=== PATIENT | female | born 1975 | race Caucasian/White ===

== ENCOUNTER 2017-05-22 11:41 | Emergency (ER) | payer BC ==
[~2017-05-22] VITALS: Ht 165.1 cm; Wt 71.3 kg
[2017-05-22 12:19] LABS: ADD MIUA? YES; BILIRUBIN NEGATIVE; BLOOD NEGATIVE; COLOR YELLOW ((YELLOW)); GLUCOSE (STRIP) NEGATIVE; KETONES NEGATIVE; LEUKOCYTES MODERATE; NITRITE NEGATIVE; PROTEIN (STRIP) NEGATIVE; SPECIFIC GRAVITY 1.011 (1.000-1.030); UROBILINOGEN 0.2 MG/DL (0.2-1.0)
[2017-05-22 12:27] LABS: BACTERIA 3+ /HPF; EPITHELIAL CELLS 4+ /HPF; MUCUS NONE SEEN /LPF
[2017-05-22 12:37] LABS: HEMATOCRIT 35.8 % (36.0-46.0); MCH 30.8 PG (29.0-34.0); MCHC 33.8 G/DL (30.0-36.0); MCV 91.1 FL (83-99); MEAN PLAT.VOLUME 9.7 uM^3 (9.5-12.4); PLATELET COUNT 266 K/uL (156-360); RBC DIS.WIDTH-CV 12.3 % (11.8-14.6); RBC DIS.WIDTH-SD 41.2 % (39-53); RED BLOOD COUNT 3.93 M/uL (3.80-5.20); WHITE BLOOD COUNT 11.9 K/uL (4.1-10.2)
[2017-05-22 12:46] LABS: CHLORIDE 109 mEq/L (99-109); POTASSIUM 3.4 mEq/L (3.7-5.4); SODIUM 140 mEq/L (136-147)
[2017-05-22 12:48] LABS: GLUCOSE 93 mg/dL (70-99)
[2017-05-22 12:49] LABS: ANION GAP 10 MEQ/L (2-14)
[2017-05-22 12:50] LABS: TOTAL BILIRUBIN 0.5 mg/dL (0.0-1.0)
[2017-05-22 12:52] LABS: ALKALINE PHOSPHATASE 80 IU/L (3-129); GFR ESTIMATE (CALCULATED) > 59 mL/min/
[2017-05-22 12:53] LABS: UREA NITROGEN (BUN) 13 mg/dL (9-23)
[2017-05-22 12:55] LABS: LIPASE 44 U/L (1.0-51.0)
[2017-05-22 13:04] LABS: QUANTITATIVE HCG < 4.0 MIU/ML
[2017-05-22] MEDS ORDERED: KEFLEX500 MG PO (13:55)
[2017-05-22] MEDS ORDERED: NAPROSYN500 MG PO (13:55)
[2017-05-22 14:12] VITALS: BP 111/58
== END 2017-05-22 14:13 | disposition home or self-care (01) ==
LOC: EME 11:41
PROVIDERS: Nurse Practitioner Family
DX: R10.33 Periumbilical pain (principal); R10.31 Right lower quadrant pain; N39.0 Urinary tract infection, site not specified; Z87.42 Personal history of other diseases of the female genital tract; Z87.891 Personal history of nicotine dependence; Z88.2 Allergy status to sulfonamides
CPT/HCPCS: 74177; 80053; 81003; 83690; 84702; 85027; 99281; 99284